=== PATIENT | male | born 1980 | race African-American/Black ===

== ENCOUNTER 2019-11-12 21:20 | Observation (INO) ==
[2019-11-12] MEDS ORDERED: ONDANSETRON 4 MG/2 ML VIAL IV STA (21:35)
[2019-11-12] MEDS ORDERED: DIPH/TET/ACEL PERT BOOSTER VACCINE 0.5 ML VIAL IM ONE (21:35)
[2019-11-12] MEDS ORDERED: HYDROmorphone 2 MG/1 ML VIAL IV STA (21:35)
[2019-11-12] MEDS ORDERED: LACTATED RINGERS 500 ML IV STA (21:35)
[2019-11-12 21:47] LABS: Basophils % 0.5 % (0.0-0.8); Eosinophils # 0.2 10*3/uL (0.0-0.87); Eosinophils % 1.8 % (0.00-10.9); Hematocrit 38.6 VOL% (42.0-52.0); Hemoglobin 12.5 GM/DL (14.0-18.0); Immature Granulocytes % 0.6 %; Immature Granulocytes Absolute 0.05 #; Lymphocytes # 3.6 10*3/uL (1.4-4.0); Lymphocytes % 41.5 % (21.2-54.2); Mean Corpuscular HGB Conc 32.4 GM/DL (32-36); Mean Corpuscular Volume 88.5 FL (87-102); Mean Platelet Volume 10.3 FL (9.6-12.0); Monocytes % 7.9 % (1.7-12.7); Neutrophils % 47.7 % (38.7-73.9); Platelet Count 199 T/CUMM (130-400); Red Blood Count 4.36 MC/CUMM (3.8-5.5); Red Cell Distribution Width 13.6 % (9.3-17.3); White Blood Count 8.8 T/CUMM (4-12)
[2019-11-12 22:09] LABS: Alanine Aminotransferase 23 U/L (16-61); Alkaline Phosphatase 53 U/L (45-117); Amylase 40 U/L (25-115); Aspartate Amino Transferase 23 U/L (0-37); Bilirubin,Total < 0.39 MG/DL (0.2-1.0); Blood Urea Nitrogen 11 MG/DL (7-18); Calcium 7.7 MG/DL (8.5-10.1); Estimated Glom Filtration Rate 108 ML/MIN; Glucose 109 MG/DL (74-106); Osmolality,Calculated 280.3 MOS/KG (273-304); Total Protein 5.6 G/DL (6.4-8.3)
[2019-11-12] MEDS ORDERED: ACETAMINOPHEN 325 MG TABLET PO PRN (22:16)
[2019-11-12] MEDS ORDERED: ONDANSETRON 4 MG/2 ML VIAL IV PRN (22:16)
[2019-11-12] MEDS: DEXTROSE 5% LACTATED RINGERS 1,000 ML IV SCH (23:58)
[2019-11-13] MEDS: ceFAZolin 1,000 MG in SYRINGE 1 EACH IV SCH ×3 (00:02→13:01)
[2019-11-13] MEDS: MORPHINE 4 MG/1 ML VIAL IV PRN ×2 (00:03→03:53)
[2019-11-13 01:19] LABS: Apearance,Urine CLEAR (Clear); Bilirubin,Urine Negative (Negative); Blood, Urine Negative (Negative); Glucose,Urine (UA) Negative (Negative); Ketones,Urine Negative (Negative); Nitrite,Urine Negative (Negative); Protein,Urine Negative; RBC,Urine 2 /HPF (0-4); Squamous Epithelial Cell,Urine Occasional /HPF (0-10); Urine Color Straw (Yellow); Urine Specific Gravity 1.029 (1.001-1.035); Urine Urobilinogen < 2.0 EU/DL (0.2-1.0); WBC,Urine 1 /HPF (0-6)
[2019-11-13 01:24] LABS: Barbiturates Screen,Urine Negative (Negative); Benzodiazepines Screen,Urine Negative (Negative); Cannabinoid Screen,Urine Positive (Negative); Opiate Screen,Urine Negative (Negative); Phencyclidine Screen,Urine Negative (Negative)
[2019-11-13 08:30] VITALS: BP 142/88
[2019-11-13] MEDS: DEXTROSE 5% LACTATED RINGERS 1,000 ML IV SCH (08:37)
[2019-11-13] MEDS ORDERED: PANTOPRAZOLE 40 MG TABLET PO SCH (09:00)
== END 2019-11-13 13:28 | disposition home or self-care (01) ==
LOC: EDUNIT# → EDBD → N.ED 21:20 → N.EDINP 21:20 → N.3E 23:00
PROVIDERS: ADMIT Surgery; ATTEND Surgery